=== PATIENT | female | born 1945 | race Caucasian/White ===

== ENCOUNTER 2020-07-18 16:26 | Emergency (ER) | payer OTHER ==
[2020-07-18 17:48] LABS: RED BLOOD COUNT 5.66 M/UL (4.20-5.50); WHITE BLOOD COUNT 9.3 K/UL (4.5-11.0)
[2020-07-18 18:09] LABS: BUN/CREATININE RATIO 36 (0-10)
== END 2020-07-18 21:00 | disposition home or self-care (01) ==
LOC: EDSEX 16:26 → ER1 16:26
PROVIDERS: Preventive Medicine Occupational Medicine
DX: E11.649 Type 2 diabetes mellitus with hypoglycemia without coma (principal); I10 Essential (primary) hypertension; J45.909 Unspecified asthma, uncomplicated; F17.200 Nicotine dependence, unspecified, uncomplicated
CPT/HCPCS: 36415; 71045; 80053; 82962; 85025; 96374; 96375; 99285; J1610